=== PATIENT | male | born 1970 | race Caucasian/White ===

== ENCOUNTER 2023-01-12 15:25 | Emergency (ER) | payer SELFPAY | END 2023-01-12 16:50 | disposition home or self-care (01) | LOC: NAV ERS 15:25 | DX: H43.12 Vitreous hemorrhage, left eye (principal); E11.9 Type 2 diabetes mellitus without complications; I10 Essential (primary) hypertension; Z79.899 Other long term (current) drug therapy; Z79.4 Long term (current) use of insulin | CPT/HCPCS: 99283 ==